=== PATIENT | male | born 1985 | race American Indian/Alaskan Native ===

== ENCOUNTER 2018-01-24 11:15 | Emergency (ER) | payer MEDICAID ==
[2018-01-24 11:50] VITALS: TEMP 99.3
--- NOTE | 2018-01-24 12:25 | C.PDOC ---
History Of Present Illness 32 y/o male comes in for evaluation of a painful swelling to the right groin area gradually developing for the past few days. Admits to having similar symptoms in the past, resolved with time. Otherwise, patient denies fever, chills, sore throat, abd. pain, UTI symptoms, testicular pain/swelling, penile discharge, or rash. Ambulate to Ed for evaluation, not in any apparent distress. Time Seen by Provider: 01/24/18 11:46 Chief Complaint (Nursing): Abnormal Skin Integrity History Per: Patient History/Exam Limitations: no limitations Onset/Duration Of Symptoms: Days Current Symptoms Are (Timing): Still Present Past Medical History Reviewed: Historical Data, Nursing Documentation, Vital Signs Vital Signs: Last Vital Signs Temp 99.3 F 01/24/18 11:48 Pulse 75 01/24/18 12:38 Resp 16 01/24/18 12:38 BP 147/89 01/24/18 12:38 Pulse Ox 99 01/24/18 13:44 - Medical History Other PMH: Obese Surgical History: No Surg Hx Family History: States: No Known Family Hx - Social History Hx Alcohol Use: Yes Hx Substance Use: No - Immunization History Hx Tetanus Toxoid Vaccination: No Hx Influenza Vaccination: No Hx Pneumococcal Vaccination: No Review Of Systems Except As Marked, All Systems Reviewed And Found Negative. Constitutional: Negative for: Fever, Chills ENT: Negative for: Throat Pain Gastrointestinal: Negative for: Vomiting, Abdominal Pain Genitourinary: Negative for: Dysuria, Frequency, Incontinence, Hematuria, Rash, Penile Pain Skin: Positive for: Other (+ tender swelling to R groin) Neurological: Negative for: Weakness, Numbness, Incoordination Physical Exam - Physical Exam Appears: Well, Non-toxic, No Acute Distress Skin: Normal Color, Warm, Other (Mildly tender mass approximately 1 cm diameter, over the right scrotum area, with no fluctuance and no proximal streaking) Oral Mucosa: Moist Throat: No Erythema, No Drooling Neck: Supple Gastrointestinal/Abdominal: Bowel Sounds (normal), Soft, No Tenderness, No Distention, No Guarding Back: No CVA Tenderness Male Genital: No Testicular Swelling, No Scrotal Swelling Extremity: Normal ROM, No Swelling Neurological/Psych: Oriented x3, Normal Speech ED Course And Treatment O2 Sat by Pulse Oximetry: 99 (RA) Pulse Ox Interpretation: Normal Progress Note: On re-evaluation, pt is afebrile, hemodynamicaly stable. Non-tox ic. Abd: benign, (-) guarding, (-) rebound. : small tender Right scrotal folliculitis, (-) flactualnce, (-) proxmal streaking, (-) testicular edema or erythema.. Pt advised on course of ds. ref. to f/u with PMD, Urology in 1 -2 days for re-eval. Return to Ed if any worsening or new changes. Disposition Counseled Patient/Family Regarding: Studies Performed, Diagnosis, Need For Followup, Rx Given - Disposition Referrals: [facility] [Outside] Disposition: HOME/ ROUTINE Disposition Time: 12:01 Condition: STABLE Additional Instructions: Warm salty water compresses to area Take medication as prescribed Follow up with PMD in 2-3 days for re-evaluation. 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 - Scribe Statement The provider has reviewed the documentation as recorded by the Scribe (Yoselin Toscano) All medical record entries made by the Scribe were at my direction and personally dictated by me. I have reviewed the chart and agree that the record accurately reflects my personal performance of the history, physical exam, medical decision making, and the department course for this patient. I have also personally directed, reviewed, and agree with the discharge instructions and disposition.
[2018-01-24 12:39] VITALS: BP 147/89; PULSE 75; RESP 16
[2018-01-24 13:27] VITALS: O2SAT 99
== END 2018-01-24 12:38 | disposition home or self-care (01) ==
LOC: C.ER 11:15
DX: L73.9 Follicular disorder, unspecified (principal)